=== PATIENT | male | born 1975 | race Caucasian/White ===

== ENCOUNTER 2017-05-01 20:26 | Emergency (ER) | payer OTHER ==
[~2017-05-01] VITALS: Ht 188 cm; Wt 136.1 kg
[2017-05-01] MEDS ORDERED: ZYRTEC10 M5 PO (21:34)
[2017-05-01] MEDS ORDERED: PAXIL10 MG PO (21:34)
[2017-05-01] MEDS ORDERED: XANAX 0.5 MG0.5 M1 PO (21:35)
[2017-05-01] MEDS ORDERED: MEDROLDOSEPACK PO (22:01)
[2017-05-01] MEDS ORDERED: LIORESAL 10 MG10 MG PO (22:01)
[2017-05-01] MEDS ORDERED: HYDROCODONE-AP1 EAC6 PO (22:01)
[2017-05-01 22:50] VITALS: BP 127/78
== END 2017-05-01 22:53 | disposition home or self-care (01) ==
LOC: ER 20:26
DX: S16.1XXA Strain of muscle, fascia and tendon at neck level, initial encounter (principal); S39.012A Strain of muscle, fascia and tendon of lower back, initial encounter; S06.0X9A Concussion with loss of consciousness of unspecified duration, initial encounter; V49.49XA Driver injured in collision with other motor vehicles in traffic accident, initial encounter; Y93.89 Activity, other specified; Y92.89 Other specified places as the place of occurrence of the external cause; Y99.8 Other external cause status